=== PATIENT | female | born 1995 | race Caucasian/White ===

== ENCOUNTER 2022-06-07 08:56 | Day surgery (SDC) | payer OTHER ==
[~2022-06-07] VITALS: Ht 167.6 cm; Wt 62.1 kg
[2022-06-07] MEDS ORDERED: diphenhydrAMINE 50 MG/ML VIAL ONE (09:37)
[2022-06-07] MEDS ORDERED: MIDAZOLAM 5 MG/5 ML VIAL ONE (09:37)
[2022-06-07] MEDS ORDERED: LIDOCAINE 2% 100 MG/5 ML UJET TP ONE (09:37)
[2022-06-07] MEDS ORDERED: fentaNYL citrate 0.05 MG/ML VIAL ONE (09:37)
[2022-06-07] MEDS ORDERED: diphenhydrAMINE 50 MG/ML VIAL IVP ONE (10:25)
[2022-06-07] MEDS ORDERED: fentaNYL citrate 0.05 MG/ML VIAL IVP ONE (10:25)
[2022-06-07] MEDS ORDERED: MIDAZOLAM 2 MG/2 ML VIAL IVP ONE (10:25)
== END 2022-06-07 11:34 | disposition home or self-care (01) ==
LOC: MMU 08:56 → MDS 08:56
PROVIDERS: ATTEND Internal Medicine Gastroenterology
DX: K62.5 Hemorrhage of anus and rectum (principal); Z20.822 Contact with and (suspected) exposure to COVID-19
CPT/HCPCS: 45378; 87426; J1200; J2250; J3010